=== PATIENT | female | born 1990 | race American Indian/Alaskan Native ===

== ENCOUNTER 2018-07-27 11:31 | Emergency (ER) | payer MEDICAID ==
--- NOTE | 2018-07-27 13:14 | XRay Report ---
FINAL REPORT PROCEDURE: XR FOOT 2V LT TECHNIQUE: Left foot, two views HISTORY: toe pain- 3rd COMPARISON: No prior studies are available for comparison. FINDINGS: No acute fracture or dislocation is seen. No focal osseous lesions. No radiopaque foreign body. IMPRESSION: No acute abnormality is seen
--- NOTE | 2018-07-27 13:21 | Emergency Department Report ---
ED Lower Extremity HPI - General Chief Complaint: Extremity Injury, Lower Stated Complaint: POSS BROKEN MIDDLE FINGER/KNOT ON THE BACK Time Seen by Provider: 07/27/18 13:18 Source: patient Mode of arrival: Ambulatory Limitations: No Limitations - History of Present Illness Initial Comments: Patient is a 28 year-old female who comes to the ER complaining of left foot pain after stubbing her left third toe. She thinks it's broken. -: Sudden, days(s) Injury: Toes: Left Type of Injury: blunt Place: home Severity: mild Improves With: nothing Worsens With: movement Context: direct blow - Related Data Allergies Allergy/AdvReac Type Severity Reaction Status Date / Time No Known Allergies Allergy Unverified 07/27/18 11:49 ED Review of Systems ROS: Stated complaint: POSS BROKEN MIDDLE FINGER/KNOT ON THE BACK Other details as noted in HPI Comment: All other systems reviewed and negative Constitutional: denies: chills Eyes: denies: eye pain ENT: denies: ear pain Respiratory: denies: cough Cardiovascular: denies: dyspnea on exertion Gastrointestinal: denies: abdominal pain Genitourinary: denies: urgency Musculoskeletal: as per HPI, other (left third toe pain). denies: back pain Skin: denies: rash Neurological: denies: weakness Psychiatric: denies: anxiety Hematological/Lymphatic: denies: as per HPI ED Past Medical Hx - Past Medical History Previous Medical History?: No Additional medical history: spinal bifida - Surgical History Past Surgical History?: No Additional Surgical History: spinal bifida - Social History Smoking Status: Current Every Day Smoker Substance Use Type: None ED Physical Exam - General Limitations: No Limitations General appearance: alert - Head Head exam: Present: atraumatic - Eye Eye exam: Present: normal appearance, PERRL Pupils: Present: normal accommodation - ENT ENT exam: Present: normal exam - Neck Neck exam: Present: normal inspection - Respiratory Respiratory exam: Present: normal lung sounds bilaterally - Cardiovascular Cardiovascular Exam: Present: regular rate - GI/Abdominal GI/Abdominal exam: Present: soft - Rectal Rectal exam: Present: deferred - Extremities Exam Extremities exam: Present: normal inspection, full ROM - Expanded Lower Extremity Exam Left Lower Leg exam: Present: normal inspection Ankle exam: Present: normal inspection Foot/Toe exam: Present: ecchymosis (of the left third toe) Neuro vascular tendon exam: Present: no vascular compromise ED Course Vital Signs 07/27/18 11:44 Temperature 98.4 F Pulse Rate 60 Respiratory 16 Rate Blood Pressure 111/66 O2 Sat by Pulse 98 Oximetry ED Lower Extremity MDM - Radiology Data Radiology results: report reviewed, image reviewed NO FRACTURE - Medical Decision Making XRAY NEG FOR FRACTURE CONTUSED ON EXAM - Differential Diagnosis RO FX Critical care attestation.: If time is entered above; I have spent that time in minutes in the direct care of this critically ill patient, excluding procedure time. ED Disposition Clinical Impression: Contusion Disposition: DC-01 TO HOME OR SELFCARE Is pt being admited?: No Does the pt Need Aspirin: No Condition: Stable Instructions: Contusion in Adults (ED) Additional Instructions: ICE REST ELEVATE MOTRIN OR TYLENOL FOR PAIN XRAY NORMAL Referrals: JOANNA FREEMAN MD [Staff Physician] - 3-5 Days Time of Disposition: 13:21
[2018-07-27 15:31] VITALS: BP 111/66
== END 2018-07-27 13:28 | disposition home or self-care (01) ==
LOC: ED 11:31
DX: S90.32XA Contusion of left foot, initial encounter (principal); F17.200 Nicotine dependence, unspecified, uncomplicated; X58.XXXA Exposure to other specified factors, initial encounter; Y93.89 Activity, other specified; Y99.8 Other external cause status; Y92.019 Unspecified place in single-family (private) house as the place of occurrence of the external cause
CPT/HCPCS: 99283

== ENCOUNTER 2020-08-30 01:02 | Emergency (ER) | payer SELFPAY ==
[2020-08-30 01:40] VITALS: BP 140/86
--- NOTE | 2020-08-30 02:48 | Emergency Department Report ---
ED ENT HPI - General Chief complaint: Dental/Oral Stated complaint: SWOLLEN TONSILS Time Seen by Provider: 08/30/20 02:31 Source: patient Mode of arrival: Ambulatory Limitations: No Limitations - History of Present Illness MD complaint: sore throat -: days(s) (7) Location: throat Severity: mild, moderate Quality: aching, dull Consistency: constant Improves with: none Worsens with: swallowing Associated Symptoms: pain with swallowing, sore throat. denies: gum swelling, toothache, hearing loss, discharge from ear, rhinorrhea - Related Data Previous Rx's Medication Instructions Recorded Last Taken Type Amoxicillin [Amoxicillin TAB] 875 mg PO BID #20 tablet 08/30/20 Unknown Rx Lidocaine Viscous 2% 5 ml MM Q3H PRN #120 udc 08/30/20 Unknown Rx Allergies Allergy/AdvReac Type Severity Reaction Status Date / Time No Known Allergies Allergy Unverified 07/27/18 11:49 ED Dental HPI - General Chief complaint: Dental/Oral Stated complaint: SWOLLEN TONSILS Time Seen by Provider: 08/30/20 02:31 Source: patient Mode of arrival: Ambulatory Limitations: No Limitations - Related Data Previous Rx's Medication Instructions Recorded Last Taken Type Amoxicillin [Amoxicillin TAB] 875 mg PO BID #20 tablet 08/30/20 Unknown Rx Lidocaine Viscous 2% 5 ml MM Q3H PRN #120 udc 08/30/20 Unknown Rx Allergies Allergy/AdvReac Type Severity Reaction Status Date / Time No Known Allergies Allergy Unverified 07/27/18 11:49 ED Review of Systems ROS: Stated complaint: SWOLLEN TONSILS Other details as noted in HPI Comment: All other systems reviewed and negative ED Past Medical Hx - Past Medical History Previous Medical History?: Yes Additional medical history: spinal bifida, scoliosis - Surgical History Past Surgical History?: Yes Additional Surgical History: spinal bifida - Social History Smoking Status: Current Some Day Smoker Substance Use Type: Marijuana - Medications Home Medications: Home Medications Medication Instructions Recorded Confirmed Last Taken Type Amoxicillin [Amoxicillin TAB] 875 mg PO BID #20 tablet 08/30/20 Unknown Rx Lidocaine Viscous 2% 5 ml MM Q3H PRN #120 udc 08/30/20 Unknown Rx ED Physical Exam - General Limitations: No Limitations General appearance: alert, in no apparent distress - Head Head exam: Present: atraumatic, normocephalic - Eye Eye exam: Present: normal appearance - ENT ENT exam: Present: mucous membranes moist, other (Pharynx has some mild erythema no exudate) - Neck Neck exam: Present: normal inspection, tenderness (Tonsillar region with palpation and also around the area of the thyroid but no goiter is noticed. No lymphadenopathy no lymphangitis. No bruits) - Respiratory Respiratory exam: Present: normal lung sounds bilaterally. Absent: respiratory distress - Cardiovascular Cardiovascular Exam: Present: regular rate, normal rhythm. Absent: systolic murmur, diastolic murmur, rubs, gallop - GI/Abdominal GI/Abdominal exam: Present: soft, normal bowel sounds - Extremities Exam Extremities exam: Present: normal inspection - Back Exam Back exam: Present: normal inspection - Neurological Exam Neurological exam: Present: alert, oriented X3 - Psychiatric Psychiatric exam: Present: normal affect, normal mood - Skin Skin exam: Present: warm, dry, intact, normal color. Absent: rash ED Course Vital Signs 08/30/20 01:37 Temperature 98.3 F Pulse Rate 76 Respiratory 18 Rate Blood Pressure 140/86 O2 Sat by Pulse 99 Oximetry Critical care attestation.: If time is entered above; I have spent that time in minutes in the direct care of this critically ill patient, excluding procedure time. ED Disposition Clinical Impression: Pharyngitis Disposition: DC-01 TO HOME OR SELFCARE Is pt being admited?: No Does the pt Need Aspirin: No Condition: Stable Instructions: Pharyngitis, Sore Throat, [id number] Referrals: [facility] [Provider Group] - 3-5 Days CHRIS SZYMANSKI MD [Staff Physician] - 3-5 Days
== END 2020-08-30 03:12 | disposition home or self-care (01) ==
LOC: ED 01:02
DX: J02.9 Acute pharyngitis, unspecified (principal); F17.200 Nicotine dependence, unspecified, uncomplicated; F12.90 Cannabis use, unspecified, uncomplicated; Z79.899 Other long term (current) drug therapy; Z98.890 Other specified postprocedural states
CPT/HCPCS: 99282

== ENCOUNTER 2020-12-15 20:36 | Emergency (ER) | payer SELFPAY ==
[2020-12-15 22:18] VITALS: BP 135/78
== END 2020-12-15 22:23 | disposition left against medical advice (07) ==
LOC: ED 20:36
DX: Z00.8 Encounter for other general examination (principal); Z53.21 Procedure and treatment not carried out due to patient leaving prior to being seen by health care provider